=== PATIENT | male | born 1970 | race Caucasian/White ===

== ENCOUNTER 2016-07-21 12:04 | Emergency (ER) | payer OTHER ==
[~2016-07-21] VITALS: Ht 185.4 cm; Wt 95.0 kg
[~2016-07-21 12:04] MED LIST: CHLO25CA9 PO; LORA1TAB PO
[2016-07-21 12:05] VITALS: Ht 185.4 cm; Wt 95.0 kg
[2016-07-21] MEDS ORDERED: LORAZEPAM 2 MG INJ ONE (12:09)
[2016-07-21] MEDS ORDERED: MULTIVITAMINS 10 ML, THIAMINE 100 MG, FOLIC ACID 1 MG, MAGNESIUM SULFATE 2 GM in SOD CH... IV ONE (12:30)
[2016-07-21] MEDS ORDERED: LORAZEPAM 2 MG INJ IV ONE (12:30)
[2016-07-21] MEDS ORDERED: SOD CHLORIDE 0.9% 1,000 ML IV ONE (12:30)
[2016-07-21 13:06] LABS: ADD SCAN DIFF NO
[2016-07-21 13:08] LABS: BASOPHIL # 0.1 10^3/ul (0.0-0.1); BASOPHILS % 0.6 % (0.0-2.0); EOSINOPHILS # 0.2 10^3/ul (0.0-0.5); EOSINOPHILS % 2.1 % (0.0-7.0); HEMATOCRIT 41.1 % (42.0-52.0); HEMOGLOBIN 13.4 g/dl (14.0-18.0); LYMPHOCYTES # 2.5 10^3/ul (0.8-2.9); LYMPHOCYTES % 30.7 % (15.0-51.0); MEAN CORPUSCULAR HEMOGLOBIN 35.1 pg (29.0-33.0); MEAN CORPUSCULAR HGB CONC 32.6 g/dl (32.0-37.0); MEAN CORPUSCULAR VOLUME 107.6 fl (82.0-101.0); MEAN PLATELET VOLUME 11.3 fl (7.4-10.4); MONOCYTE # 0.5 10^3/ul (0.3-0.9); MONOCYTES % 6.7 % (0.0-11.0); NEUTROPHIL # 4.7 10^3/ul (1.6-7.5); NEUTROPHILS % 59.3 % (39.0-77.0); PLATELET COUNT 142 10^3/UL (140-415); RED BLOOD COUNT 3.82 10^6/ul (4.70-6.10); RED CELL DISTRIBUTION WIDTH 14.2 % (11.5-14.5)
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
[2016-07-21 13:29] LABS: ALBUMIN 4.6 g/dl (3.3-4.9); CHLORIDE 101 mmol/L (97-110)
[2016-07-21 13:30] LABS: POTASSIUM 3.6 mmol/L (3.5-5.1); SODIUM 141 mmol/L (135-144)
[2016-07-21] MEDS ORDERED: ENALAPRILAT 1.25 MG INJ IV ONE (13:30)
[2016-07-21 13:32] LABS: ALBUMIN/GLOBULIN RATIO 1.39; ANION GAP 31 (8-16); ASPARTATE AMINO TRANSFERASE 271 IU/L (15-46); BILIRUBIN,INDIRECT 0.8 mg/dl (0-1.1); BILIRUBIN,TOTAL 0.8 mg/dl (0.2-1.3); BLOOD UREA NITROGEN 8 mg/dl (7-20); CARBON DIOXIDE 13 mmol/L (21-31); CREATININE 0.86 mg/dl (0.61-1.24); TOTAL PROTEIN 7.9 g/dl (6.1-8.1)
[2016-07-21 13:33] LABS: ALANINE AMINOTRANSFERASE 119 IU/L (13-69); ALKALINE PHOSPHATASE 116 IU/L (42-121); CALCIUM 9.8 mg/dl (8.4-10.2); GLUCOSE 160 mg/dl (70-220)
[2016-07-21 13:47] LABS: TROPONIN-I < 0.012 ng/ml (0.00-0.12)
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
[2016-07-21] MEDS ORDERED: LEVE-5 PO (14:40)
[2016-07-21] MEDS ORDERED: LEVETIRACETAM 500 MG TAB PO ONE (16:00)
[2016-07-21 16:24] VITALS: BP 127/84; PULSE 104; RESP 20; TEMP 98.3
== END 2016-07-21 16:26 | disposition home or self-care (01) ==
LOC: E/R 12:04
DX: F10.239 Alcohol dependence with withdrawal, unspecified (principal); R40.4 Transient alteration of awareness; E86.0 Dehydration; R40.2252 Coma scale, best verbal response, oriented, at arrival to emergency department; R40.2362 Coma scale, best motor response, obeys commands, at arrival to emergency department; R40.2142 Coma scale, eyes open, spontaneous, at arrival to emergency department
CPT/HCPCS: 71010; 80053; 83690; 84484; 85025; 93005; J2060; J3411; J3475; J7030; Z7610; 36415; 96374; 96375

== ENCOUNTER 2016-12-18 01:35 | Emergency (ER) | payer OTHER ==
[~2016-12-18] VITALS: Ht 175.3 cm; Wt 75.0 kg
[~2016-12-18 01:35] MED LIST changes: -CHLO25CA9 PO; +LEVE-5 PO
[2016-12-18 01:48] VITALS: Ht 175.3 cm; Wt 75.0 kg
[2016-12-18] MEDS ORDERED: LORAZEPAM 2 MG INJ IM ONE (02:30)
--- NOTE | 2016-12-18 02:58 | ERD ---
ER Documentation Chief Complaint Date/Time DATE: 12/18/16 TIME: 02:57 Chief Complaint etoh withdrawal- shaking HPI This is a 46-year-old male comes in with complaints of withdrawal from alcohol. He said he is feeling shaky. Denies any fevers or chills. Denies any auditory or visual hallucinations. Last drink was 2 days ago. ROS All systems reviewed and are negative except as per history of present illness. Medications Home Meds Active Scripts Levetiracetam* (Keppra*) 500 Mg Tablet, 500 MG PO BID, #30 TAB Prov:RUBEN MOORE MD 07/21/16 Lorazepam* (Lorazepam*) 1 Mg Tablet, 1 MG PO Q6 Y for AGITATION/ANXIETY, #30 TAB 1 Refill Prov:ANANT PEREZ 07/23/15 Allergies Allergies: Coded Allergies: No Known Allergy (Verified , 07/21/16) PMhx/Soc History of Surgery: No Anesthesia Reaction: No Hx Neurological Disorder: No Hx Respiratory Disorders: No Hx Cardiac Disorders: No Hx Psychiatric Problems: No Hx Miscellaneous Medical Probl: No Hx Alcohol Use: No Hx Substance Use: No Hx Tobacco Use: No Physical Exam Vitals Vital Signs Date Time Temp Pulse Resp B/P Pulse Ox O2 Delivery O2 Flow Rate FiO2 12/18/16 01:48 98.0 78 20 147/80 96 Physical Exam Const: [] Head: Atraumatic Eyes: Normal Conjunctiva ENT: Normal External Ears, Nose and Mouth. Neck: Full range of motion..~ No meningismus. Resp: Clear to auscultation bilaterally Cardio: Regular rate and rhythm, no murmurs Abd: Soft, non tender, non distended. Normal bowel sounds Skin: No petechiae or rashes Back: No midline or flank tenderness Ext: No cyanosis, or edema Neur: Awake and alert Psych: Normal Mood and Affect Results 24 hrs Current Medications Medications (Trade) Dose Ordered Sig/Alfie Route PRN Reason Start Time Stop Time Status Last Admin Dose Admin Lorazepam (Ativan) 2 mg ONCE ONCE IM 12/18/16 02:30 12/18/16 02:31 DC 12/18/16 02:45 Procedures/MDM Medical decision-makin-year-old male with alcohol withdrawal. Symptoms are treated with Ativan intramuscularly. Patient will be discharged home and told to follow-up with primary care physician. Discharged with Librium. Departure Diagnosis: Primary Impression: Alcohol withdrawal syndrome Complication of substance-induced condition: uncomplicated Qualified Code: F10.230 - Alcohol withdrawal syndrome without complication Condition: Stable CHERYL BRITT Dec 18, 2016 02:58
[2016-12-18] MEDS ORDERED: CHLO25CA9 PO (02:59)
[2016-12-18 04:35] VITALS: BP 126/89; PULSE 73; RESP 14
== END 2016-12-18 04:42 | disposition home or self-care (01) ==
LOC: E/R 01:35
DX: F10.230 Alcohol dependence with withdrawal, uncomplicated (principal)
CPT/HCPCS: 96372; J2060; Z7502; Z7610

== ENCOUNTER 2017-05-27 13:42 | Inpatient (IN) | END 2017-05-30 13:40 | disposition home or self-care (01) | DRG 896 ==

== ENCOUNTER 2018-10-14 06:13 | Emergency (ER) | payer OTHER ==
[~2018-10-14] VITALS: Ht 185.4 cm; Wt 68.2 kg
[~2018-10-14 06:13] MED LIST changes: +CHLO10CA6 PO; +HC30CR25 TOP; +HYDR-843 PO; -LEVE-5 PO
[2018-10-14 06:17] VITALS: Ht 185.4 cm; Wt 68.2 kg
[2018-10-14] MEDS ORDERED: LIDOCAINE/MYLANTA 40 ML BTL PO STA (06:21)
[2018-10-14] MEDS ORDERED: SOD CHLORIDE 0.9% 1,000 ML IV STA (06:21)
[2018-10-14] MEDS ORDERED: FAMOTIDINE 20 MG TAB PO STA (06:21)
[2018-10-14] MEDS ORDERED: FOLIC ACID 1 MG TAB PO ONE (06:30)
[2018-10-14] MEDS ORDERED: THIAMINE 100 MG TAB PO ONE (06:30)
[2018-10-14] MEDS ORDERED: DEXTROSE 5%-0.45% NACL 500 ML BAG IV ONE (06:30)
[2018-10-14] MEDS ORDERED: DIAZEPAM 5 MG/ML SYG IV ONE ×2 (06:30→08:00)
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
[2018-10-14 12:04] VITALS: BP 128/83; PULSE 83; RESP 18
== END 2018-10-14 12:13 | disposition home or self-care (01) ==
LOC: E/R 06:13
DX: E86.0 Dehydration (principal); F10.230 Alcohol dependence with withdrawal, uncomplicated; Z59.0 Homelessness; Z87.891 Personal history of nicotine dependence
CPT/HCPCS: 36415; 80053; 83690; 84484; 85025; 93005; 96374; 96375; 96376; J3360; J7030; Z7502; Z7610

== ENCOUNTER 2018-11-14 21:41 | Emergency (ER) | payer OTHER ==
[~2018-11-14] VITALS: Ht 185.4 cm; Wt 70.0 kg
[2018-11-14 21:54] VITALS: Ht 185.4 cm; Wt 70.0 kg
[2018-11-14] MEDS ORDERED: LORAZEPAM 1 MG TAB PO ONE (22:00)
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
[2018-11-15 04:55] VITALS: BP 99/69; PULSE 72; RESP 14
== END 2018-11-15 05:05 | disposition home or self-care (01) ==
LOC: E/R 21:41
DX: G40.909 Epilepsy, unspecified, not intractable, without status epilepticus (principal); F10.920 Alcohol use, unspecified with intoxication, uncomplicated; F17.210 Nicotine dependence, cigarettes, uncomplicated
CPT/HCPCS: 70450; 82962; Z7502; Z7610

== ENCOUNTER 2018-12-04 19:08 | Emergency (ER) | payer OTHER ==
[~2018-12-04] VITALS: Ht 185.4 cm; Wt 72.0 kg
[2018-12-04 19:10] VITALS: BP 121/7; PULSE 93; RESP 16; Ht 185.4 cm; Wt 72.0 kg
== END 2018-12-04 20:15 | disposition home or self-care (01) ==
LOC: E/R 19:08
DX: F10.920 Alcohol use, unspecified with intoxication, uncomplicated (principal)
CPT/HCPCS: 99283